=== PATIENT | female | born 1995 | race Hispanic/Latino ===

== ENCOUNTER 2024-03-04 12:30 | Outpatient (RCR) | payer OTHER, SELFPAY ==
--- NOTE | 2024-01-22 16:51 | PTOPEVAL1 ---
Assessment and note entered by Maura Cardozo, PT Evaluation Information Assessment Status Evaluation Diagnosis pain in right knee ICD-10 Condition Codes (PT) M25.561,Weakness R53.1 Other ICD-10 Condition Codes ( instability of right knee PT) Onset 01/06/24 Subjective Information Pt states no acute injury. 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 Hurts worse when relaxing. Popping on the outside of the knee with the sense of caving in at times. Knee is doing some better know, was a sharp shooting pain previously Was having heat on knee. If didn't put to much weight on it would feel ok. But works on her feet all day at [employer] and this would cause increased pain. Does take Ibuprofen as needed and this helps. wears crocs at work because she has wide feet. States is hard to find shoes that fit well and don't pinch Reported Pain Level Pain Score 2: Self Report Assessment PT Clinical Summary Pt presents with complaints of right knee pain. She shows abnormal ankle/knee alignment with increased recurvatum and valgus angles, decreased hip stabilizer strength, decreased gastroc strength R>L, laterally deviating patella, and knee instability. Pt will benefit from physical therapy to improve muscle balance, ankle/knee alignment, knee stability, and thus improve discomfort and return pt to [facility]. Plan of Care Interventions Electrical Stimulation,Hot Pack/Cold Pack,Manual Therapy,Neuro Re-education,Therapeutic Activities, Therapeutic Exercise,Self-Care/Home Management, Ultrasound Other Interventions Taping, bracing PT Services Indicated Yes Treatment Frequency and 1-2x weekly x 10 Duration These treatments will address the objective and functional deficits as defined above. The patient will be advanced safely and appropriately in order for the patient to progress towards his/her prior level of function. Additional exercises will be introduced and as well as a comprehensive home exercise program upon discharge, if needed, ?to ensure carryover of functional gains achieved in the clinic. This treatment plan has been reviewed and agreement upon by the patient.
--- NOTE | 2024-01-22 16:51 | OPREHPOC ---
Outpatient Therapy Plan of Care This is a Multidisciplinary Plan of Care that may contain components documented by all disciplines (PT, OT, and ST.) PT Problem 1 PT Problem #1 Knowledge Deficit PT Goal 1 Goal / Goal Update Pt will be independent in HEP Pt will verbalize understanding of diagnosis and prognosis Target Visit 5 PT Problem 2 PT Problem #2 Impaired Flexibility PT Goal 1 Goal / Goal Update Pt will demo only mildly decreased gastroc/soleous flexibility in order to decreased forces related to knee recurvatum. Target Visit 10 PT Problem 3 PT Problem #3 Impaired Endurance PT Goal 1 Goal / Goal Update Pt will report ability to wear appropriate shoes and arch supports through an entire work shift without increased pain. Target Visit 10 PT Problem 4 PT Problem #4 Impaired Strength PT Goal 1 Goal / Goal Update Pt will demo 4/5 or greater strength in BLE to improve knee stability and kinematics with activities PT Problem 5 PT Problem #5 Pain PT Goal 1 Goal / Goal Update Pt will report greatest pain level at 3/10 or less to improve ADLs and activities Target Visit 5 PT Goal 2 Goal / Goal Update Pt will report resolution of pain to return to PLOF Target Visit 10
--- NOTE | 2024-03-05 15:32 | PTOPPROG ---
Assessment and note entered by Amy Olivera, PT Re-Evaluation Information Assessment Status Progress Diagnosis pain in right knee ICD-10 Condition Codes (PT) M25.561,Weakness R53.1 Other ICD-10 Condition Codes ( instability of right knee PT) Onset 01/06/24 Subjective Information Pt reports knees are not too bad today and she has arch supports but is not consistently wearing at work. Reports compliant with exercises. 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 Assessment PT Clinical Summary Pt received a total of 9 PT treatment sessions and showed gains in mobility and strength. Noted significant reduction in pain levels, however, she reports continued pain and discomfort with end ranges of knee flexion, squatting and going up/ down stairs, pain has not completely resolved. Continued tightness to lower leg muscles and ITB which results to pressure to knee with prolonged standing and walking tasks. Pt. will benefit from continued skilled PT interventions to improve core and hip strength to improve knee stability and balance, improve mobility to BLEs and education on proper positioning and body mechanics with lifting and carrying objects at home and at work without increased pain and discomfort to bilat knees. Plan of Care Interventions Electrical Stimulation,Hot Pack/Cold Pack, Intermittent Compression,Manual Therapy,Neuro Re- education,Patient/Caregiver Education,Therapeutic Activities,Therapeutic Exercise,Self-Care/Home Management,Ultrasound Other Interventions Taping, bracing PT Services Indicated Yes Treatment Frequency and 1x/wk x 6 visits Duration These treatments will address the objective and functional deficits as defined above. The patient will be advanced safely and appropriately in order for the patient to progress towards his/her prior level of function. Additional exercises will be introduced and as well as a comprehensive home exercise program upon discharge, if needed, ?to ensure carryover of functional gains achieved in the clinic. This treatment plan has been reviewed and agreement upon by the patient.
--- NOTE | 2024-03-31 16:46 | PTOPDC ---
Assessment and note entered by Amy Olivera, PT Discharge Information Assessment Status Discharge - Pt Not Present Diagnosis pain in right knee ICD-10 Condition Codes (PT) Pain in right knee M25.561,Weakness R53.1 Other ICD-10 Condition Codes ( instability of right knee PT) Onset 01/06/24 Subjective Information Pt reports knees are not too bad today and she has arch supports but is not consistently wearing at work. Reports compliant with exercises. 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 Assessment PT Clinical Summary Pt received a total of 9 treatment sessions and showed gains in strength and mobility but continued to lack strength which pt wanted to continue working with therapy. Unfortunately, insurance denied request for additional visits. Patient will be discharged at this time. Plan of Care PT Services Indicated No
== END 2024-04-01 14:31 | disposition home or self-care (01) ==
LOC: ANHHIPT 12:30
PROVIDERS: PCP Nurse Practitioner Family; Visit Provider Nurse Practitioner Family
DX: M25.561 Pain in right knee (principal)
CPT/HCPCS: 97014; 97110; 97112; 97140; 97161; 97530; 97750; G0283